=== PATIENT | female | born 1955 | race American Indian/Alaskan Native ===

== ENCOUNTER 2017-11-27 13:11 | Emergency (ER) | payer MEDICARE ==
[2017-11-27 14:13] LABS: Basophils % (Auto) 0.2 % (0.0-1.8); Eosinophils % (Auto) 0.3 % (0.0-4.3); Hematocrit 33.6 % (30.3-42.9); Hemoglobin 10.6 gm/dl (10.1-14.3); Lymphocytes % (Auto) 11.8 % (13.4-35.0); Mean Corpuscular HGB Conc 32 % (30-34); Mean Corpuscular Volume 80 fl (79-97); Monocytes # (Auto) 0.7 K/mm3 (0.0-0.8); Monocytes % (Auto) 8.6 % (0.0-7.3); Platelet Count 188 K/mm3 (140-440); Red Blood Count 4.22 M/mm3 (3.65-5.03); Red Cell Distribution Width 13.1 % (13.2-15.2)
[2017-11-27 14:16] LABS: BUN/Creatinine Ratio 19; Blood Urea Nitrogen 25 mg/dL (7-17); Calcium 9.7 mg/dL (8.4-10.2); Hemolysis Index 1
[2017-11-27 14:19] LABS: Mean Corpuscular Hemoglobin 25 pg (28-32)
--- NOTE | 2017-11-27 14:35 | Emergency Department Report ---
Blank Doc - Documentation Documentation: Patient is 62 years old female with history of heart transplant 2 years ago at [facility]. Patient presented to the ER complaining of left- sided chest pain started this morning associated with shortness of breath and pain when she take a deep breath. Patient denied any cough or fever. No nausea no vomiting. Given patient clinical presentation patient will need to be moved to our main ED for further management.
--- NOTE | 2017-11-27 14:59 | Emergency Department Report ---
ED General Adult HPI - General Chief complaint: Chest Pain Stated complaint: CHEST PAIN Time Seen by Provider: 11/27/17 14:23 Source: patient Mode of arrival: Ambulatory Limitations: No Limitations - History of Present Illness Initial comments: This is a 62-year-old female who is unknown to this provider previously. She reports a history of cardiac transplant at [place] 2 years ago secondary to congestive heart failure which she reports was secondary to . She does not know the name of her medical orthodontist, transplant surgeon, or transplant orthodontist. She reports that she is due for a cardiac catheterization next month. She denies leg pain, leg swelling. She denies DVT , pulmonary embolus risk factors. She presents to the ER with a complaint of central and left-sided chest wall pain, and shortness of breath, without nausea , vomiting or diaphoresis. The pain is pleuritic, increases with deep inspiration and palpation and decreases with rest. There is no hemoptysis, there is no hematemesis. She is not sure of her transplant meds she supposed to be taking -: Gradual, hour(s) Location: chest Radiation: non-radiation Quality: aching Consistency: intermittent Improves with: movement, rest Worsens with: other (as per history of present illness) Associated Symptoms: chest pain, shortness of breath. denies: confusion, cough , diaphoresis, fever/chills, headaches, loss of appetite, malaise, nausea/ vomiting, rash, seizure, syncope, weakness - Related Data Allergies Allergy/AdvReac Type Severity Reaction Status Date / Time acetaminophen [From Percocet] Allergy Mild MAKES PT Verified 11/27/17 16:08 JITTERY oxycodone HCl [From Percocet] Allergy Mild MAKES PT Verified 11/27/17 16:08 JITTERY promethazine HCl Allergy Mild MAKE PT Verified 11/27/17 16:08 [From Phenergan] JITTERY ED Review of Systems ROS: Stated complaint: CHEST PAIN Other details as noted in HPI Constitutional: denies: fever ENT: denies: epistaxis Respiratory: shortness of breath Cardiovascular: chest pain Gastrointestinal: denies: vomiting Genitourinary: denies: dysuria Musculoskeletal: denies: back pain Skin: denies: lesions Neurological: denies: weakness Psychiatric: anxiety ED Past Medical Hx - Past Medical History Previous Medical History?: Yes Hx Hypertension: Yes Hx Diabetes: Yes - Surgical History Past Surgical History?: Yes Additional Surgical History: heart transplant - Social History Smoking Status: Never Smoker Substance Use Type: None ED Physical Exam - General Limitations: No Limitations General appearance: alert, in no apparent distress - Head Head exam: Present: atraumatic, normocephalic - Eye Eye exam: Present: normal appearance, EOMI. Absent: nystagmus - ENT ENT exam: Present: normal exam, normal orophraynx, mucous membranes moist, normal external ear exam - Neck Neck exam: Present: normal inspection, full ROM - Respiratory Respiratory exam: Present: normal lung sounds bilaterally, chest wall tenderness. Absent: respiratory distress - Cardiovascular Cardiovascular Exam: Present: normal rhythm, tachycardia, normal heart sounds. Absent: systolic murmur, diastolic murmur, rubs, gallop - GI/Abdominal GI/Abdominal exam: Present: soft, normal bowel sounds. Absent: distended, tenderness, guarding, rebound, rigid, pulsatile mass - Extremities Exam Extremities exam: Present: normal inspection, full ROM, normal capillary refill , other (there is no palpable cord. This is negative Homans sign.). Absent: pedal edema, joint swelling, calf tenderness - Back Exam Back exam: Present: normal inspection, full ROM. Absent: tenderness, CVA tenderness (R), paraspinal tenderness, vertebral tenderness - Neurological Exam Neurological exam: Present: alert, oriented X3, CN II-XII intact, normal gait, other (Extraocular movements intact. Tongue midline. No facial droop. Facial sensation intact to light touch in the V1, V2, V3 distribution bilaterally. 5 and 5 strength in 4 extremities.. Sensation is intact to light touch in 4 extremities.). Absent: motor sensory deficit - Psychiatric Psychiatric exam: Present: normal affect, normal mood - Skin Skin exam: Present: warm, dry, intact, normal color. Absent: rash ED Course Vital Signs 11/27/17 11/27/17 11/27/17 13:34 14:46 15:00 Temperature 99 F Pulse Rate 105 H 99 H 100 H Respiratory 16 21 22 Rate Blood Pressure 113/82 106/78 Blood Pressure [Right] O2 Sat by Pulse 96 100 98 Oximetry 11/27/17 11/27/17 11/27/17 15:15 15:16 15:30 Temperature 99.2 F Pulse Rate 96 H 96 H 94 H Respiratory 19 24 28 H Rate Blood Pressure 106/78 106/78 Blood Pressure 106/78 [Right] O2 Sat by Pulse 98 98 98 Oximetry 11/27/17 11/27/17 11/27/17 15:46 16:00 16:14 Temperature Pulse Rate 96 H 95 H 95 H Respiratory 20 22 Rate Blood Pressure 106/78 106/78 117/70 Blood Pressure [Right] O2 Sat by Pulse 98 100 Oximetry 11/27/17 11/27/17 11/27/17 17:31 17:45 18:00 Temperature Pulse Rate 95 H 84 Respiratory 18 17 Rate Blood Pressure 115/70 119/72 133/79 Blood Pressure [Right] O2 Sat by Pulse 99 100 100 Oximetry - Reevaluation(s) Reevaluation #1: 11/27/17 18:58 Patient does not know the names of her transplant medications. Nursing staff called up the patient's pharmacy of record, they were on hold for 10 minutes, and nobody answered the phone. ED Medical Decision Making - Lab Data Result diagrams: 11/27/17 13:44 11/27/17 13:44 Vital Signs 11/27/17 11/27/17 11/27/17 13:34 15:15 16:14 Temperature 99 F 99.2 F Pulse Rate 105 H 96 H 95 H Respiratory 16 19 Rate Blood Pressure 113/82 117/70 Blood Pressure 106/78 [Right] O2 Sat by Pulse 96 98 Oximetry Lab Results 11/27/17 11/27/17 11/27/17 Range/Units 13:44 13:44 15:06 WBC 8.7 (4.5-11.0) K/mm3 RBC 4.22 (3.65-5.03) M/mm3 Hgb 10.6 (10.1-14.3) gm/dl Hct 33.6 (30.3-42.9) % MCV 80 (79-97) fl MCH 25 L (28-32) pg MCHC 32 (30-34) % RDW 13.1 L (13.2-15.2) % Plt Count 188 (140-440) K/mm3 Lymph % (Auto) 11.8 L (13.4-35.0) % Door % (Auto) 8.6 H (0.0-7.3) % Eos % (Auto) 0.3 (0.0-4.3) % Baso % (Auto) 0.2 (0.0-1.8) % Lymph # 1.0 L (1.2-5.4) K/mm3 Door # 0.7 (0.0-0.8) K/mm3 Eos # 0.0 (0.0-0.4) K/mm3 Baso # 0.0 (0.0-0.1) K/mm3 Seg Neutrophils % 79.1 H (40.0-70.0) % Seg Neutrophils # 6.9 (1.8-7.7) K/mm3 PT 13.5 (12.2-14.9) Sec. INR 0.98 (0.87-1.13) APTT 26.4 (24.2-36.6) Sec. D-Dimer 336.56 H (0-234) ng/mlDDU Sodium 138 (137-145) mmol/L Potassium 4.7 (3.6-5.0) mmol/L Chloride 103.8 (98-107) mmol/L Carbon Dioxide 19 L (22-30) mmol/L Anion Gap 20 mmol/L BUN 25 H (7-17) mg/dL Creatinine 1.3 H (0.7-1.2) mg/dL Estimated GFR 50 ml/min BUN/Creatinine Ratio 19 % Glucose 171 H (65-100) mg/dL Calcium 9.7 (8.4-10.2) mg/dL Troponin T < 0.010 (0.00-0.029) ng/mL NT-Pro-B Natriuret Pep (0-900) pg/mL 11/27/17 Range/Units 16:00 WBC (4.5-11.0) K/mm3 RBC (3.65-5.03) M/mm3 Hgb (10.1-14.3) gm/dl Hct (30.3-42.9) % MCV (79-97) fl MCH (28-32) pg MCHC (30-34) % RDW (13.2-15.2) % Plt Count (140-440) K/mm3 Lymph % (Auto) (13.4-35.0) % Door % (Auto) (0.0-7.3) % Eos % (Auto) (0.0-4.3) % Baso % (Auto) (0.0-1.8) % Lymph # (1.2-5.4) K/mm3 Door # (0.0-0.8) K/mm3 Eos # (0.0-0.4) K/mm3 Baso # (0.0-0.1) K/mm3 Seg Neutrophils % (40.0-70.0) % Seg Neutrophils # (1.8-7.7) K/mm3 PT (12.2-14.9) Sec. INR (0.87-1.13) APTT (24.2-36.6) Sec. D-Dimer (0-234) ng/mlDDU Sodium (137-145) mmol/L Potassium (3.6-5.0) mmol/L Chloride (98-107) mmol/L Carbon Dioxide (22-30) mmol/L Anion Gap mmol/L BUN (7-17) mg/dL Creatinine (0.7-1.2) mg/dL Estimated GFR ml/min BUN/Creatinine Ratio % Glucose (65-100) mg/dL Calcium (8.4-10.2) mg/dL Troponin T < 0.010 (0.00-0.029) ng/mL NT-Pro-B Natriuret Pep 373.3 (0-900) pg/mL - EKG Data -: EKG Interpreted by Ma EKG shows normal: sinus rhythm, axis, intervals, QRS complexes, ST-T waves - EKG Data When compared to previous EKG there are: previous EKG unavailable 11/27/17 17:58 not a stemi - Radiology Data Radiology results: report reviewed, image reviewed Print Report Referring Physician: PATRIA HENSON Patient Name: ANAIS STILL Date of : 1955 Sex: Female Report Date: 2017-11-27 Report Status: Finalized Findings [facility] [address] [place] [address] Nuclear Medicine Report Signed Patient: ANAIS STILL MR#: [id number] : 1955 Acct:[id number] Age/Sex: 62 / F ADM Date: 11/27/17 Loc: ED Attending Dr: Ordering Physician: PATRIA HENSON MD Date of Service: 11/27/17 Procedure(s): NM lung scan perf/vent Accession Number(s): [id number] cc: PATRIA HENSON MD FINAL REPORT EXAM: NM LUNG SCAN PERF/VENT HISTORY: cp dyspnea TECHNIQUE: Ventilation-perfusion scan Ventilation study performed with 7.2 millicuries xenon 133 Perfusion study performed following intravenous administration 3.2 millicuries technetium 99 M MAA PRIORS: Correlated with chest radiograph of the same date FINDINGS: On perfusion study there is a large perfusion defect in the right lower lung zone without corresponding ventilation abnormality. No additional perfusion defects are identified On ventilation exam there is normal washout of the radiotracer without evidence for air trapping IMPRESSION: Single large mismatched defect right lower lung zone is ET without corresponding abnormality on chest radiograph. Intermediate probability for pulmonary embolus Transcribed By: COCO Dictated By: ONESIMO HERNANDEZ MD Electronically Authenticated By: ONESIMO HERNANDEZ MD Signed Date/Time: 11/27/171739 DD/ 39 TD/TT: 11/27/171739 - Medical Decision Making Differential diagnosis, including but not limited to: Pulmonary embolus, costochondritis, acute coronary syndrome, pneumonia, pericarditis, myocarditis, hiatal hernia Assessment and plan: 62-year-old female, a cardiac transplant patient, low- grade temperature orally and rectally, on immunosuppressive medication, with tachycardia, clear x-ray the chest, nondiagnostic/intermediate probability nuclear medicine study, this hospital does not have transplant cardiology available for consultation or evaluation. Given her complex medical and surgical history, this patient will be best served at a facility that can offer transplant cardiology. I have consult to her covering transplant orthodontist at [place], Dr. Alcaraz, who has accepted the patient as a transfer. Patient has a creatinine of 1.3 and a GFR of 50, borderline renal insufficiency, so reluctant to give IV dye. Has no contraindications to systemic anticoagulation so will be started on heparinization drip without bolus as per recommendations of accepting medical orthodontist. The patient has an emergency medical condition at this time and requires transfer to a facility that can offer a level of care than what this hospital can provide. Critical care attestation.: If time is entered above; I have spent that time in minutes in the direct care of this critically ill patient, excluding procedure time. ED Disposition Clinical Impression: Pleuritic chest pain, History of heart transplant Disposition: DC/TX-02 SHRT-TRM GEN HOSP IP Is pt being admited?: No Does the pt Need Aspirin: No Condition: Good Instructions: Chest Pain (ED) Referrals: CAROLEE COBB MD [Primary Care Provider] - 3-5 Days
--- NOTE | 2017-11-27 15:42 | XRay Report ---
PORTABLE CHEST INDICATION: Chest pain. COMPARISON: None similar. FINDINGS: Portable, frontal chest radiograph suggests borderline cardiomegaly. Sternotomy wires. Slight right basilar atelectasis; otherwise grossly clear lungs. Few extrinsic artifacts. Intact bones. CONCLUSION: No significant acute chest process, as described. Thank you for the opportunity to participate in this patient's care.
[2017-11-27 15:50] LABS: INR 0.98 (0.87-1.13); Partial Thromboplastin Time 26.4 Sec. (24.2-36.6)
[2017-11-27] MEDS ORDERED: ASPIRIN ONE (16:02)
[2017-11-27] MEDS: ASPIRIN PO ONE (16:14)
[2017-11-27] MEDS: NITROSTAT SL PRN (16:14)
--- NOTE | 2017-11-27 17:44 | Nuclear Medicine Report ---
FINAL REPORT EXAM: NM LUNG SCAN PERF/VENT HISTORY: cp dyspnea TECHNIQUE: Ventilation-perfusion scan Ventilation study performed with 7.2 millicuries xenon 133 Perfusion study performed following intravenous administration 3.2 millicuries technetium 99 M MAA PRIORS: Correlated with chest radiograph of the same date FINDINGS: On perfusion study there is a large perfusion defect in the right lower lung zone without corresponding ventilation abnormality. No additional perfusion defects are identified On ventilation exam there is normal washout of the radiotracer without evidence for air trapping IMPRESSION: Single large mismatched defect right lower lung zone is ET without corresponding abnormality on chest radiograph. Intermediate probability for pulmonary embolus
[2017-11-27 18:21] VITALS: BP 133/79
[2017-11-27] MEDS: HEPARIN/ 0.45% NACL-25,000 UNIT/500 ML 25,000 UNIT/500 ML BAG IV SCH (18:36)
[2017-11-27 19:49] LABS: Hematocrit 32.4 % (30.3-42.9); Hemoglobin 10.3 gm/dl (10.1-14.3)
[2017-11-27 19:52] LABS: INR 0.95 (0.87-1.13)
== END 2017-11-27 22:50 | disposition short-term general hospital (02) ==
LOC: ED 13:11
DX: R07.89 Other chest pain (principal); R06.02 Shortness of breath; Z94.1 Heart transplant status; I10 Essential (primary) hypertension; E11.9 Type 2 diabetes mellitus without complications
CPT/HCPCS: 36415; 71045; 78582; 80048; 83880; 84484; 85014; 85018; 85025; 85049; 85379; 85610; 85730; 93005; 93010; 96365; 96366; 99285; A9540; A9558; J1644

== ENCOUNTER 2022-01-30 04:13 | Emergency (ER) | payer OTHER ==
[2022-01-30] MEDS ORDERED: fentaNYL 100 MCG/2 ML INJ IV ONE (06:36)
[2022-01-30] MEDS ORDERED: KETOROLAC 30 MG/1 ML INJ IV ONE (06:36)
[2022-01-30] MEDS ORDERED: ONDANSETRON 4 MG/2 ML INJ IV ONE (06:36)
--- NOTE | 2022-01-30 06:42 | Emergency Department Report ---
HPI - General Chief Complaint: Back Pain/Injury Time Seen by Provider: 01/30/22 06:27 - HPI HPI: Room 6 The patient 66-year-old female present with chief complaint of back pain. Patient states she had low back pain for the past 2 days after injuring herself during physical therapy. Patient complains of pain in her lower back complaining of numbness to the bilateral lower extremities. Patient denies bowel or bladder incontinence. Patient currently gives her pain a score of 10/10. Patient denies any preceding trauma. Patient states she remembers the exercise she was doing when the pain began and included reaching down to touch her legs while lying on the exam table. Patient states the pain began during physical therapy but did not worsen until she got home. ED Past Medical Hx - Past Medical History Hx Hypertension: Yes Hx CVA: Yes (Residual left-sided weakness) Hx Diabetes: Yes - Surgical History Additional Surgical History: Cardiac transplant [place] 2014. Patient does not recall name of transplant surgeon - Family History Family history: no significant - Social History Smoking Status: Never Smoker Substance Use Type: None (Denies illicit drug use) - Medications Home Medications: Home Medications Medication Instructions Recorded Confirmed Last Taken Type Apixaban [Eliquis] 5 mg PO DAILY 06/23/20 06/23/20 Unknown History Aspirin [Aspirin BABY CHEW TAB] 81 mg PO QDAY 06/23/20 06/23/20 Unknown History Ergocalciferol [Vitamin D2] 1 cap PO QWEEK 06/23/20 06/23/20 Unknown History Gabapentin 100 mg PO Q8HR PRN 06/23/20 06/23/20 Unknown History Insulin Glargine,Hum.rec.anlog 100 unit SQ ACHS 06/23/20 06/23/20 Unknown History [Basaglar Contrerasikpen U-100] Levocetirizine Dihydrochloride 5 mg PO DAILY 06/23/20 06/23/20 Unknown History [Xyzal] Levothyroxine [Synthroid] 50 mcg PO QAM 06/23/20 06/23/20 Unknown History Mycophenolate [Cellcept] 1,000 mg PO BID 06/23/20 06/23/20 Unknown History [place]-3 Fatty Acids/Fish Oil [Fish 1 each PO DAILY 06/23/20 06/23/20 Unknown History Oil 1,000 mg Capsule] Omeprazole 20 mg PO DAILY 06/23/20 06/23/20 Unknown History Pantoprazole [Protonix TAB] 40 mg PO QDAY 06/23/20 06/23/20 Unknown History Potassium Chloride [K-Dur] 10 meq PO QDAY 06/23/20 06/23/20 Unknown History Rosuvastatin Calcium 10 mg PO QHS 06/23/20 06/23/20 Unknown History Tacrolimus [Astagraf Xl] 5 mg PO BID 06/23/20 06/23/20 Unknown History hydroCHLOROthiazide [HCTZ] 50 mg PO QDAY 06/23/20 06/23/20 Unknown History Acetaminophen [Acetaminophen TAB] 650 mg PO Q6H PRN tablet 06/27/20 Unknown Rx Antacid [Alum-Mag Hydrox-Simeth 30 ml PO Q4H PRN oral.liqd 06/27/20 Unknown Rx [id number]] [place]-3 Fatty Acids/Fish Oil [Fish 1,000 mg PO QDAY capsule 06/27/20 Unknown Rx Oil] Sennosides Tab [Senokot] 8.6 mg PO Q12HR tablet 06/27/20 Unknown Rx Cyclobenzaprine [Flexeril] 10 mg PO TID PRN #20 01/30/22 Unknown Rx HYDROcodone/APAP 5-325 [[place] 1 - 2 each PO Q6HR PRN #20 tablet 01/30/22 Unknown Rx 5/325] Ibuprofen [Motrin 800 MG tab] 800 mg PO Q8HR PRN #20 tablet 01/30/22 Unknown Rx ED Review of Systems ROS: Stated complaint: BACK PAIN FOR 3 DAYS Other details as noted in HPI Constitutional: denies: fever Eyes: denies: eye pain ENT: denies: throat pain Respiratory: no symptoms reported Cardiovascular: denies: chest pain Endocrine: no symptoms reported Gastrointestinal: denies: abdominal pain Genitourinary: denies: dysuria Musculoskeletal: back pain Neurological: paresthesias Physical Exam - Physical Exam Vital Signs: Vital Signs 01/30/22 04:15 Temperature 97.6 F Pulse Rate 114 H Respiratory 16 Rate Blood Pressure 150/90 [Right] O2 Sat by Pulse 99 Oximetry Physical Exam: GENERAL: The patient is well-developed well-nourished female lying on stretcher in the left lateral decubitus position not appearing to be in acute distress HEENT: Normocephalic. Atraumatic. Extraocular motions are intact. Patient has moist mucous membranes. NECK: Supple. Trachea midline CHEST/LUNGS: Clear to auscultation. There is no respiratory distress noted. HEART/CARDIOVASCULAR: Regular. There is no tachycardia. There is no gallop rub or murmur. 2+ DPs bilaterally ABDOMEN: Abdomen is soft, nontender. Patient has normal bowel sounds. There is no abdominal distention. SKIN: There is no rash. There is no edema. There is no diaphoresis. NEURO: The patient is awake, alert, and oriented. The patient is cooperative. The patient has no focal neurologic deficits. The patient has normal speech. GCS 15 MUSCULOSKELETAL: There is mild discomfort to palpation of the lumbar spine. There are no axial step-offs.. There is no evidence of acute injury. ED Course Vital Signs 01/30/22 04:15 Temperature 97.6 F Pulse Rate 114 H Respiratory 16 Rate Blood Pressure 150/90 [Right] O2 Sat by Pulse 99 Oximetry ED Medical Decision Making - Radiology Data Radiology results: report reviewed (CT lumbar spine), image reviewed (CT lumbar spine) [address] [address] Cat Scan Report Signed Patient: ANAIS STILL MR#: [id number] : 1955 Acct:[id number] Age/Sex: 66 / F ADM Date: 01/30/22 Loc: ED Attending Dr: Ordering Physician: SARY ANGELO MD Date of Service: 01/30/22 Procedure(s): CT lumbar spine wo con Accession Number(s): [id number] cc: SARY ANGELO MD CT lumbar spine without contrast INDICATION: Low back pain radiating to BLE. TECHNIQUE: Axial imaging performed through the spine without the use of contrast. Sagittal and coronal reconstructed images were also reviewed. All CT scans at this location are performed using CT dose reduction for ALARA by means of automated exposure control. COMPARISON: None FINDINGS: Alignment: Spinal alignment is normal. Bones: There is no acute osseous abnormality. Mild multilevel discogenic DJD is present. There is moderately advanced facet arthropathy most notably at L4/5 where there is a small posterior disc bulge, ligamentum flavum hypertrophy, mild bilateral foraminal stenosis, and at least moderate central canal stenosis. Soft tissues: No acute or significant incidental soft tissue abnormality. IMPRESSION: 1. No acute osseous abnormality. 2. Degenerative changes notably at L4/5 as above. Signer Name: Nima Waterman MD Signed: 01/30/2022 7:47 AM Workstation Name: [id number] Transcribed By: MANUELA Dictated By: Nima Waterman MD Electronically Authenticated By: Nima Waterman MD Signed Date/Time: 01/30/22746 DD/ 3 TD/TT: - Medical Decision Making Patient states he is unable to have an MRI secondary to the cardiac lead from her heart transplant - Differential Diagnosis Lumbar radiculopathy, Critical care attestation.: If time is entered above; I have spent that time in minutes in the direct care of this critically ill patient, excluding procedure time. ED Disposition Clinical Impression: Lumbar radiculopathy Disposition: HOME / SELF CARE / HOMELESS Is pt being admited?: No Does the pt Need Aspirin: No Condition: Stable Instructions: Radicular Pain Additional Instructions: Return to the emergency department should you develop worsening symptoms, inability to tolerate food or liquids, high fever or any other concerns Prescriptions: Cyclobenzaprine [Flexeril] 10 mg PO TID PRN #20 PRN Reason: Muscle Spasm Ibuprofen [Motrin 800 MG tab] 800 mg PO Q8HR PRN #20 tablet PRN Reason: Pain, Moderate (4-6) HYDROcodone/APAP 5-325 [[place] 5/325] 1 - 2 each PO Q6HR PRN #20 tablet PRN Reason: Pain Referrals: CAROLEE COBB MD [Primary Care Provider] - 3-5 Days BENNIE ARMSTRONG MD [Staff Physician] - 3-5 Days (Dr. Armstrong is an orthopedic surgeon. Please follow-up with him for further evaluation) Time of Disposition: 11:09
[2022-01-30 06:59] LABS: Bacteria,Urine 1+ /HPF (Negative); Mucus,Urine FEW /HPF
[2022-01-30 07:02] LABS: Color,Urine Straw (Yellow)
--- NOTE | 2022-01-30 07:51 | Cat Scan Report ---
CT lumbar spine without contrast INDICATION: Low back pain radiating to BLE. TECHNIQUE: Axial imaging performed through the spine without the use of contrast. Sagittal and raquel nal reconstructed images were also reviewed. All CT scans at this location are performed using CT do se reduction for ALARA by means of automated exposure control. COMPARISON: None FINDINGS: Alignment: Spinal alignment is normal. Bones: There is no acute osseous abnormality. Mild multilevel discogenic DJD is present. There is moderately advanced facet arthropathy most notably at L4/5 where there is a small posterior disc bulg e, ligamentum flavum hypertrophy, mild bilateral foraminal stenosis, and at least moderate central ca nal stenosis. Soft tissues: No acute or significant incidental soft tissue abnormality. IMPRESSION: 1. No acute osseous abnormality. 2. Degenerative changes notably at L4/5 as above. Signer Name: Nima Waterman MD Signed: 01/30/2022 7:47 AM Workstation Name: [id number]
[2022-01-30 08:26] VITALS: BP 106/62
== END 2022-01-30 11:49 | disposition home or self-care (01) ==
LOC: ED 04:13
DX: M54.16 Radiculopathy, lumbar region (principal); I10 Essential (primary) hypertension; E11.9 Type 2 diabetes mellitus without complications; Z88.5 Allergy status to narcotic agent; Z88.8 Allergy status to other drugs, medicaments and biological substances; Z79.899 Other long term (current) drug therapy
CPT/HCPCS: 72131; 81001; 96374; 96375; 99284; J1885; J2405; J3010